=== PATIENT | female | born 1960 | race Caucasian/White ===

== ENCOUNTER 2023-05-10 08:38 | Outpatient (AMB) | payer OTHER, MEDICAID, SELFPAY ==
--- NOTE | 2023-05-10 08:39 | MHC.PC.OV ---
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 Allergies No Known Allergies Allergy (Verified 05/10/23 08:40) Medication List - Last Reconciled 05/10/23 by Roxanne Thibodeaux MD No Known Home Meds Tobacco use date assessed: 05/10/23 Dental Screening Dental Screen Date: 05/10/23 Did you have a dental visit in the last 12 months?: Yes Did you have a dental problem in the last 6 months where you did not have access to dental care?: No Was dental information given to patient?: Patient has dentist HPI 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 Do not want mammogram Do not want Pap smear No known want colonoscopy Agree to do labs Blood pressure is 152/90 I need to see her again on Monday. Last blood pressure was 118 x 62 last year We will book appointment to go over labs as well and check blood pressure. Breast exam was done benign BMI is elevated at 34.0 patient need to lose weight. [facility] Family History Other Mental health disorder Social History Housing: Apartment Patient Tobacco Use Status: Never used Tobacco e-Cigarette/Vaping Use: Never Used Current occupational status: unemployed Cognitive needs: No Hearing needs: No Vision needs: No Questionnaire PHQ-9 Over the last 2 weeks, how often have you been bothered by any of the following problems? 1. Little interest or pleasure in doing things: not at all 2. Feeling down, depressed, or hopeless: not at all 3. Trouble falling or staying asleep, or sleeping too much: nearly every day 4. Feeling tired or having little energy: not at all 5. Poor appetite or overeating: not at all 6. Feeling bad about yourself - or that you are a failure or have let yourself or your family down: not at all 7. Trouble concentrating on things, such as reading the newspaper or watching television: not at all 8. Moving or speaking so slowly that other people could have noticed. Or the opposite - being so fidgety or restless that you have been moving around a lot more than usual: not at all 9. Thoughts that you would be better off or of hurting yourself in some way: not at all Total score: 3 Depression Screening Interpretation: Negative Depression Screening Done: Yes 21561 - PHQ-9 Billing: Yes Source: Developed by Drs. Miles Izaguirre, Donna Araujo, Hayden Hernandez and colleagues, with an educational pippa from [employer]. Thrive Questionnaire Date Thrive assessed: 05/10/23 I am a: Patient What is your living situation today?: I have a steady place to live Within the past 12 months, did the food you bought not last and you didn't have the money to get more?: Never true Within the past 12 months, did you worry whether your food would run out before you got money to buy more?: Never true Do you have trouble paying for medicines?: No Do you have trouble getting transportation to medical appointments?: No Do you have trouble paying your heating and electricity bill?: No Do you have trouble taking care of your child, family member or friend?: No Do you have trouble with day-to-day activities such as bathing, preparing meals, shopping, managing finances, etc.?: No Are you currently unemployed and looking for a job?: No Are you interested in more education?: No VINCE-7 AMB Questionnaire VINCE-7 Date VINCE - 7 assessed: 05/10/23 Feeling nervous, anxious, or on edge: 0 = Not at all Not being able to stop or control worryin = Not at all Worrying too much about different things: 0 = Not at all Trouble relaxin = Not at all Being so restless that it is hard to sit still: 0 = Not at all Becoming easily annoyed or irritable: 0 = Not at all Feeling afraid as if something awful might happen: 0 = Not at all Total VINCE-7 score (0-4 normal; 5-9 mild; 10-14 moderate; 15-21 severe): 0 Source: Developed by Drs. Miles Izaguirre, Donna Araujo, Hayden Hernandez and colleagues, with an educational pippa from [employer]. VINCE-7 Assessment Billing VINCE-7 Assessment Tool: VINCE-7 Assessment 48786 Review of Systems Const Denies chills, Denies fever(s) and Denies headache(s) Eyes Denies blurry vision ENT Denies headache(s), Denies nasal discharge, Denies nasal obstruction, Denies odynophagia and Denies sinus pain Card Denies chest pain at rest and Denies chest pain with activity Resp Denies cough and Denies hemoptysis GI Denies diarrhea, Denies odynophagia, Denies vomiting and Denies hematemesis Reports as per HPI Musc Denies abnormal gait Skin/Breast Reports as per HPI Neuro Denies Neuro-related abnormal movements, Denies Abnormal speech present, Denies abnormal gait, Denies headache(s) and Denies Sensory deficit (Neuro) Psych Denies mood swings and Denies paranoia Endo Reports as per HPI Raz/Lymph Reports as per HPI Aller/Immun Reports as per HPI Physical exam (Primary Care) Vital Signs: Last Vital Signs Pulse 82 05/10/23 08:43 BP 152/90 H 05/10/23 08:43 Pulse Ox 98 05/10/23 08:43 Oxygen Delivery Method Room Air 05/10/23 08:43 BMI result Body Mass Index 34.0 Tobacco/Smoking Status: Tobacco use Status Tobacco use date assessed 05/10/23 05/10/23 08:42 Patient Tobacco Use Status Never used Tobacco 05/10/23 08:42 e-Cigarette/Vaping Use Never Used 05/10/23 08:42 PHQ-9: PHQ-9 Score PHQ-9: Total score 3 05/10/23 09:06 Depression Screening Interpretation: Negative Thrive Assessment: Date of Thrive Assessment Date Thrive assessed 05/10/23 05/10/23 09:06 Const General: cooperative, comfortable and no acute distress Orientation/consciousness: patient oriented x3 HENMT Head: Yes normocephalic and Yes atraumatic Eyes General: appearance normal, both eyes and all related structures Pupils: Equal, round and reactive pupils present EOM: EOMs intact bilaterally Neck Neck: Yes supple and No lymphadenopathy Thyroid: Thyroid normal Lymphatic: no lymphadenopathy noted Chest Breast/axilla palpation: normal palpation of the breasts Resp Effort & Inspection: normal respiratory effort and able to speak in complete sentences Auscultation: clear to auscultation bilaterally Cardio Heart sounds: S1 normal heart sound present and S2 normal heart sound present GI Palpation (GI): Soft to palpation and nontender Auscultation: normal bowel sounds General: Yes no CVA tenderness Back/Spine/Pelvis Back: no CVA tenderness Skin General skin exam: elasticity normal and turgor normal Neuro General: patient oriented x3 and gait normal Cranial nerves: Yes Equal, round and reactive pupils present Speech: No Abnormal speech present Sensory Exam: No Sensory deficit (Neuro) Coordination: tandem gait normal and Romberg test negative Extrem General: Yes normal exam except as noted and No edema Assessment and Plan Assessment & Plan (1) Encounter for general adult medical examination with abnormal findings: Code(s): Z00.01 - Encounter for general adult medical examination with abnormal findings (2) Obesity due to excess calories: Code(s): E66.09 - Other obesity due to excess calories Qualifiers: Obesity classification: adult class 1 (BMI 30 - 34.9) Serious obesity comorbidity presence: with serious comorbidity Body mass index: BMI 34.0-34.9 Qualified Code(s): E66.09 - Other obesity due to excess calories; Z68.34 - Body mass index [BMI] 34.0-34.9, adult (3) Elevated blood pressure reading: Code(s): R03.0 - Elevated blood-pressure reading, without diagnosis of hypertension Plan Patient is 63-year-old female came in today to have a form filled so she can attend [email or web address] class Last time patient was seen August of 2021, for initial physical exam Labs were ordered which were never done. Do not want mammogram Do not want Pap smear No known want colonoscopy Agree to do labs Blood pressure is 152/90 I need to see her again on Monday. Last blood pressure was 118 x 62 last year We will book appointment to go over labs as well and check blood pressure. Breast exam was done benign BMI is elevated at 34.0 patient need to lose weight. Orders: Orders Comprehensive Met. Panel Today E66.09 - Other obesity due to excess calories, R03.0 - Elevated blood-pressure reading, without diagnosis of hypertension, Z00.01 - Encounter for general adult medical examination with abnormal findings Complete Blood Count Auto Diff Today E66.09 - Other obesity due to excess calories, R03.0 - Elevated blood-pressure reading, without diagnosis of hypertension, Z00.01 - Encounter for general adult medical examination with abnormal findings LDL Cholesterol Direct Today E66.09 - Other obesity due to excess calories, R03.0 - Elevated blood-pressure reading, without diagnosis of hypertension, Z00.01 - Encounter for general adult medical examination with abnormal findings TSH reflex Free T4 Today E66.09 - Other obesity due to excess calories, R03.0 - Elevated blood-pressure reading, without diagnosis of hypertension, Z00.01 - Encounter for general adult medical examination with abnormal findings Coding Level of Care Code Est Pt Prev Care 40-64y(53589) Diagnoses Encounter for general adult medical examination with abnormal findings Z00.01 Class 1 obesity due to excess calories with serious comorbidity and body mass index (BMI) of 34.0 to 34.9 in adult E66.09; Z68.34 Obesity classification: adult class 1 (BMI 30 - 34.9) Serious obesity comorbidity presence: with serious comorbidity Body mass index: BMI 34.0-34.9 Elevated blood pressure reading R03.0 Additional Codes VINCE-7 Assessment Billing - VINCE-7 Assessment Tool: VINCE-7 Assessment 77705 ([id number])
[2023-05-10 08:43] VITALS: BP 152/90; PULSE 82; O2SAT 98; BMI 34.0
== END 2023-05-10 10:16 | disposition home or self-care (01) ==
PROVIDERS: PCP Internal Medicine; Visit Provider Internal Medicine
DX: Z00.00 Encounter for general adult medical examination without abnormal findings (principal); E66.09 Other obesity due to excess calories; Z68.34 Body mass index [BMI] 34.0-34.9, adult; R03.0 Elevated blood-pressure reading, without diagnosis of hypertension
CPT/HCPCS: 99396

== ENCOUNTER 2023-05-10 08:58 | Outpatient (REF) | payer OTHER, MEDICAID, SELFPAY ==
[2023-05-10 11:15] LABS: MANUAL DIFF FLAG NO
[2023-05-10 11:23] LABS: Basophils Percent Auto 0.3 % (0-2); Eosinophils Absolute Auto 0.1 X10*3/uL (0.0-0.4); Eosinophils Percent Auto 1.3 % (0-4); Hematocrit 47.7 % (37.0-47.0); Hemoglobin 15.5 g/dl (12.0-16.0); Imm Gran Abs Auto 0.04 X10*3/uL (0.00-0.03); Imm Gran Pct Auto 0.4 % (0.0-0.4); Lymphocytes Absolute Auto 2.3 X10*3/uL (1.2-4.9); Lymphocytes Percent Auto 24.1 % (20-40); Mean Corpuscular HGB Conc 32.5 g/dl (31.0-35.0); Mean Corpuscular Volume 101.5 fL (80.0-98.0); Mean Platelet Volume 10.8 fL (9.4-12.3); Monocytes Absolute Auto 0.9 X10*3/uL (0.1-1.2); Monocytes Percent Auto 9.2 % (2-11); Neutrophils Percent Auto 64.7 % (45-73); Platelet Count 203 X10*3/uL (160-400); Red Cell Distribution Width 13.2 % (11.0-16.0); White Blood Count 9.3 X10*3/uL (4.8-10.8)
[2023-05-10 11:35] LABS: Alanine Aminotransferase 15 U/L (0-31); Albumin Level 4.3 g/dL (3.5-5.0); Alkaline Phosphatase 118 U/L (39-117); Anion Gap 15 (12-20); Aspartate Amino Transferase 24 U/L (5-31); Bilirubin Total 0.7 mg/dL (0.0-1.0); Blood Urea Nitrogen 13 mg/dL (9-16); Calcium 10.8 mg/dL (8.4-10.2); Carbon Dioxide 27 mmol/L (22-29); Chloride 108 mmol/L (96-108); Estimated Glomerular Filt Rate > 60; Glucose Random 97 mg/dL (60-115); Sodium 146 mmol/L (135-145); Total Protein 7.3 g/dL (6.5-8.0)
[2023-05-10 11:56] LABS: TSH reflex Free T4 0.98 uIU/mL (0.32-4.0)
[2023-05-11 12:53] LABS: LDL Cholesterol Direct 118 mg/dL (<100)
== END 2023-05-10 08:59 | disposition home or self-care (01) ==
LOC: HO.HMGCLDS 08:58
PROVIDERS: PCP Internal Medicine; Visit Provider Internal Medicine
DX: Z00.01 Encounter for general adult medical examination with abnormal findings (principal); E66.09 Other obesity due to excess calories; R03.0 Elevated blood-pressure reading, without diagnosis of hypertension
CPT/HCPCS: 36415; 80053; 83721; 84443; 85025

== ENCOUNTER 2023-05-31 13:37 | Outpatient (AMB) | payer OTHER, MEDICAID, SELFPAY ==
[2023-05-31 13:44] VITALS: BP 132/86; PULSE 82; O2SAT 99; BMI 34.4
--- NOTE | 2023-05-31 13:44 | A.OFFPC_ITS ---
Vital Signs 05/31/23 13:44 Height 5 ft 6 in Weight 213 lb BMI 34.4 BP 132/86 Blood Pressure Location Rt brachial Position Sitting Pulse 82 Pulse Source Pulse Oximeter Pulse Oximetry (%) 99 Oxygen Delivery Method Room Air Intake Visit Reasons: 2 day follow up/Per Dr. Thibodeaux (rescheduled) Allergies No Known Allergies Allergy (Verified 05/31/23 13:44) Medication List - Last Reconciled 05/31/23 by Roxanne Thibodeaux MD No Known Home Meds Tobacco use date assessed: 05/31/23 Dental Screening Dental Screen Date: 05/31/23 Did you have a dental visit in the last 12 months?: Yes Did you have a dental problem in the last 6 months where you did not have access to dental care?: No Was dental information given to patient?: Patient has dentist HPI 2 day follow up/Per Dr. Thibodeaux (rescheduled) HPI Details Patient came in for blood pressure check and to go over labs Her blood pressure has improved and is down to 132/86 it was 152/90 last visit 2 weeks ago Patient is still not within normal range. She has BMI of 34.4 if she managed to lose weight it will help blood pressure as well. Meanwhile she is to continue observing no salt diet. Labs done recently showed slightly elevated sodium of 146 Calcium of 10.8 and alkaline phosphatase of 118 Patient was instructed to drink more water And repeat labs again in 2 or 3 months. Order placed [facility] Family History Other Mental health disorder Social History Housing: Apartment Patient Tobacco Use Status: Never used Tobacco e-Cigarette/Vaping Use: Never Used Current occupational status: unemployed Cognitive needs: No Hearing needs: No Vision needs: No Questionnaire Thrive Questionnaire Date Thrive assessed: 05/10/23 VINCE-7 AMB Questionnaire VINCE-7 Date VINCE - 7 assessed: 05/10/23 Source: Developed by Drs. Miles Izaguirre, Donna Araujo, Hayden Hernandez and colleagues, with an educational pippa from [employer]. Review of Systems Const Denies chills and Denies fever(s) ENT Denies epistaxis and Denies nasal discharge Card Denies chest pain Resp Denies chest congestion, Denies cough and Denies hemoptysis GI Denies diarrhea and Denies nausea Skin/Breast Denies rash Neuro Reports no additional complaints Psych Reports no additional complaints Endo Reports no additional complaints Physical exam (Primary Care) Vital Signs: Last Vital Signs Pulse 82 05/31/23 13:44 BP 132/86 05/31/23 13:44 Pulse Ox 99 05/31/23 13:44 Oxygen Delivery Method Room Air 05/31/23 13:44 BMI result Body Mass Index 34.4 Tobacco/Smoking Status: Tobacco use Status Tobacco use date assessed 05/31/23 05/31/23 13:46 Patient Tobacco Use Status Never used Tobacco 05/31/23 13:46 e-Cigarette/Vaping Use Never Used 05/31/23 13:46 Thrive Assessment: Date of Thrive Assessment Date Thrive assessed 05/10/23 05/31/23 13:46 Const General: cooperative, comfortable and no acute distress Orientation/consciousness: patient oriented x3 HENMT Head: Yes normocephalic Eyes General: appearance normal, both eyes and all related structures Neck Neck: Yes supple Resp Effort & Inspection: normal respiratory effort, no cough and no stridor Cardio Rhythm: regular rhythm Heart sounds: S1 normal heart sound present and S2 normal heart sound present Skin General skin exam: turgor normal Neuro General: patient oriented x3, tone normal and moves all extremities Extrem Right lower extremity: no edema Left lower extremity: no edema Assessment and Plan Assessment & Plan (1) Serum sodium elevated: Code(s): E87.0 - Hyperosmolality and hypernatremia (2) Serum calcium elevated: Code(s): E83.52 - Hypercalcemia (3) Alkaline phosphatase elevation: Code(s): R74.8 - Abnormal levels of other serum enzymes (4) Obesity due to excess calories: Code(s): E66.09 - Other obesity due to excess calories Qualifiers: Body mass index: BMI 34.0-34.9 Obesity classification: adult class 1 ( BMI 30 - 34.9) Serious obesity comorbidity presence: with serious comorbidity Qualified Code(s): E66.09 - Other obesity due to excess calories; Z68.34 - Body mass index [BMI] 34.0-34.9, adult (5) Pre-hypertension: Code(s): R03.0 - Elevated blood-pressure reading, without diagnosis of hypertension Plan Patient came in for blood pressure check and to go over labs Her blood pressure has improved and is down to 132/86 it was 152/90 last visit 2 weeks ago Patient is still not within normal range. She has BMI of 34.4 if she managed to lose weight it will help blood pressure as well. Meanwhile she is to continue observing no salt diet. Labs done recently showed slightly elevated sodium of 146 Calcium of 10.8 and alkaline phosphatase of 118 Patient was instructed to drink more water And repeat labs again in 2 or 3 months. Order placed She wanted a form filled for line dancing which I did Orders: Orders Comprehensive Met. Panel 2 Months E66.09 - Other obesity due to excess calories, E83.52 - Hypercalcemia, E87.0 - Hyperosmolality and hypernatremia, R74.8 - Abnormal levels of other serum enzymes Coding Level of Care Code Est Pt Level 4 (53241) Diagnoses Serum sodium elevated E87.0 Serum calcium elevated E83.52 Alkaline phosphatase elevation R74.8 Class 1 obesity due to excess calories with serious comorbidity and body mass index (BMI) of 34.0 to 34.9 in adult E66.09; Z68.34 Body mass index: BMI 34.0-34.9 Obesity classification: adult class 1 (BMI 30 - 34.9) Serious obesity comorbidity presence: with serious comorbidity Pre-hypertension R03.0
== END 2023-05-31 14:33 | disposition home or self-care (01) ==
PROVIDERS: PCP Internal Medicine; Visit Provider Internal Medicine
DX: E87.0 Hyperosmolality and hypernatremia (principal); E83.52 Hypercalcemia; R74.8 Abnormal levels of other serum enzymes; E66.09 Other obesity due to excess calories; Z68.34 Body mass index [BMI] 34.0-34.9, adult; R03.0 Elevated blood-pressure reading, without diagnosis of hypertension
CPT/HCPCS: 99214

== ENCOUNTER 2023-09-08 11:25 | Outpatient (AMB) | payer MEDICARE, SELFPAY ==
[2023-09-08 11:26] VITALS: BP 142/96; PULSE 72; O2SAT 99; BMI 34.7
--- NOTE | 2023-09-08 11:26 | MHC.PC.OV ---
Vital Signs 09/08/23 11:26 Height 5 ft 6 in Weight 215 lb 2 oz BMI 34.7 BP 142/96 H Blood Pressure Location Lt brachial Position Sitting Pulse 72 Pulse Source Pulse Oximeter Pulse Oximetry (%) 99 Oxygen Delivery Method Room Air Intake Visit Reasons: Annual PE Allergies No Known Allergies Allergy (Verified 09/08/23 11:27) Medication List - Last Reconciled 09/08/23 by Roxanne Thibodeaux MD No Known Home Meds Tobacco use date assessed: 09/08/23 Dental Screening Dental Screen Date: 09/08/23 Did you have a dental visit in the last 12 months?: Yes Did you have a dental problem in the last 6 months where you did not have access to dental care?: No Was dental information given to patient?: Patient has dentist HPI Annual PE HPI Details Physical exam, appointment patient is 63-year-old female Blood pressure is elevated today at 142/96 Last year she had labs her calcium was elevated, alkaline phosphatase was 118 and sodium was 1 point high We will be repeating labs again Patient is to return in 2 weeks for blood pressure recheck and to go over the labs Mammogram is due, order provided to patient, she says that she can only go to [facility] Colonoscopy was 2020,at [facility] patient do not remember the name of the doctor but tells me that it was normal. Pap smear due referral placed for [facility] OBGYN, breast exam through OBGYN as per patient BMI is elevated, need to lose weight PFSH Family History Other Mental health disorder Social History Housing: Apartment Patient Tobacco Use Status: Never used Tobacco e-Cigarette/Vaping Use: Never Used Current occupational status: unemployed Cognitive needs: No Hearing needs: No Vision needs: No Questionnaire Thrive Questionnaire Date Thrive assessed: 05/10/23 AUDIT C Alcohol Use Questionnaire (AUDIT-C) 1. How often do you have a drink containing alcohol?: Never 3. How often do you have six or more drinks on one occasion?: Never Total Score: 0 Score Reviewed/Action Taken: Yes VINCE-7 AMB Questionnaire VINCE-7 Date VINCE - 7 assessed: 05/10/23 Source: Developed by Drs. Miles L. ZinaDonna carnes, Hayden Hernandez and colleagues, with an educational pippa from [employer]. Review of Systems Const Denies chills, Denies fever(s) and Denies headache(s) Eyes Denies blurry vision ENT Denies headache(s), Denies nasal discharge, Denies nasal obstruction, Denies odynophagia and Denies sinus pain Card Denies chest pain at rest and Denies chest pain with activity Resp Denies cough and Denies hemoptysis GI Denies diarrhea, Denies odynophagia, Denies vomiting and Denies hematemesis Reports as per HPI Musc Denies abnormal gait Skin/Breast Reports as per HPI Neuro Denies Neuro-related abnormal movements, Denies Abnormal speech present, Denies abnormal gait, Denies headache(s) and Denies Sensory deficit (Neuro) Psych Denies mood swings and Denies paranoia Endo Reports as per HPI Raz/Lymph Reports as per HPI Aller/Immun Reports as per HPI Physical exam (Primary Care) Vital Signs: Last Vital Signs Pulse 72 09/08/23 11:26 BP 142/96 H 09/08/23 11:26 Pulse Ox 99 09/08/23 11:26 Oxygen Delivery Method Room Air 09/08/23 11:26 BMI result Body Mass Index 34.7 Tobacco/Smoking Status: Tobacco use Status Tobacco use date assessed 09/08/23 09/08/23 11:29 Patient Tobacco Use Status Never used Tobacco 09/08/23 11:29 e-Cigarette/Vaping Use Never Used 09/08/23 11:29 Thrive Assessment: Date of Thrive Assessment Date Thrive assessed 05/10/23 09/08/23 11:29 Const General: cooperative, comfortable and no acute distress Orientation/consciousness: patient oriented x3 HENMT Head: Yes normocephalic and Yes atraumatic Eyes General: appearance normal, both eyes and all related structures Pupils: Equal, round and reactive pupils present EOM: EOMs intact bilaterally Neck Neck: Yes supple and No lymphadenopathy Thyroid: Thyroid normal Lymphatic: no lymphadenopathy noted Resp Effort & Inspection: normal respiratory effort and able to speak in complete sentences Auscultation: clear to auscultation bilaterally Cardio Heart sounds: S1 normal heart sound present and S2 normal heart sound present GI Palpation (GI): Soft to palpation and nontender Auscultation: normal bowel sounds General: Yes no CVA tenderness Back/Spine/Pelvis Back: no CVA tenderness Skin General skin exam: elasticity normal and turgor normal Neuro General: patient oriented x3 and gait normal Cranial nerves: Yes Equal, round and reactive pupils present Speech: No Abnormal speech present Sensory Exam: No Sensory deficit (Neuro) Coordination: tandem gait normal and Romberg test negative Extrem General: Yes normal exam except as noted and No edema Assessment and Plan Assessment & Plan (1) Encounter for general adult medical examination with abnormal findings: Code(s): Z00.01 - Encounter for general adult medical examination with abnormal findings (2) Obesity due to excess calories: Code(s): E66.09 - Other obesity due to excess calories Qualifiers: Body mass index: BMI 34.0-34.9 Obesity classification: adult class 1 (BMI 30 - 34.9) Serious obesity comorbidity presence: with serious comorbidity Qualified Code(s): E66.09 - Other obesity due to excess calories; Z68.34 - Body mass index [BMI] 34.0-34.9, adult (3) Elevated blood pressure reading: Code(s): R03.0 - Elevated blood-pressure reading, without diagnosis of hypertension (4) Serum sodium elevated: Code(s): E87.0 - Hyperosmolality and hypernatremia (5) Serum calcium elevated: Code(s): E83.52 - Hypercalcemia (6) Alkaline phosphatase elevation: Code(s): R74.8 - Abnormal levels of other serum enzymes Plan Physical exam, appointment patient is 63-year-old female Blood pressure is elevated today at 142/96 Last year she had labs her calcium was elevated, alkaline phosphatase was 118 and sodium was 1 point high We will be repeating labs again Patient is to return in 2 weeks for blood pressure recheck and to go over the labs Mammogram is due, order provided to patient, she says that she can only go to [facility] Colonoscopy was 2020,at [facility] patient do not remember the name of the doctor but tells me that it was normal. Pap smear due referral placed for [facility] OBGYN, breast exam through OBGYN as per patient BMI is elevated, need to lose weight Orders: Orders Complete Blood Count Auto Diff Today E66.09 - Other obesity due to excess calories, E83.52 - Hypercalcemia, E87.0 - Hyperosmolality and hypernatremia, R03.0 - Elevated blood-pressure reading, without diagnosis of hypertension, R74.8 - Abnormal levels of other serum enzymes, Z00.01 - Encounter for general adult medical examination with abnormal findings LDL Cholesterol Direct Today E66.09 - Other obesity due to excess calories, E83.52 - Hypercalcemia, E87.0 - Hyperosmolality and hypernatremia, R03.0 - Elevated blood-pressure reading, without diagnosis of hypertension, R74.8 - Abnormal levels of other serum enzymes, Z00.01 - Encounter for general adult medical examination with abnormal findings MM tomosynthesis screening BI Today Z12.31 - Encounter for screening mammogram for malignant neoplasm of breast Comprehensive Met. Panel Today E66.09 - Other obesity due to excess calories, E83.52 - Hypercalcemia, E87.0 - Hyperosmolality and hypernatremia, R03.0 - Elevated blood-pressure reading, without diagnosis of hypertension, R74.8 - Abnormal levels of other serum enzymes, Z00.01 - Encounter for general adult medical examination with abnormal findings Parathyroid Hormone Related Pr Today E66.09 - Other obesity due to excess calories, E83.52 - Hypercalcemia, E87.0 - Hyperosmolality and hypernatremia, R03.0 - Elevated blood-pressure reading, without diagnosis of hypertension, R74.8 - Abnormal levels of other serum enzymes, Z00.01 - Encounter for general adult medical examination with abnormal findings TSH reflex Free T4 Today E66.09 - Other obesity due to excess calories, E83.52 - Hypercalcemia, E87.0 - Hyperosmolality and hypernatremia, R03.0 - Elevated blood-pressure reading, without diagnosis of hypertension, R74.8 - Abnormal levels of other serum enzymes, Z00.01 - Encounter for general adult medical examination with abnormal findings UA CC w/rflx Micro + Cult Today E66.09 - Other obesity due to excess calories, E83.52 - Hypercalcemia, E87.0 - Hyperosmolality and hypernatremia, R03.0 - Elevated blood-pressure reading, without diagnosis of hypertension, R74.8 - Abnormal levels of other serum enzymes, Z00.01 - Encounter for general adult medical examination with abnormal findings Referrals [employer] Referral Z01.419 - Encounter for gynecological examination (general) (routine) without abnormal findings Coding Level of Care Code Est Pt Prev Care 40-64y(39519) Diagnoses Encounter for general adult medical examination with abnormal findings Z00.01 Class 1 obesity due to excess calories with serious comorbidity and body mass index (BMI) of 34.0 to 34.9 in adult E66.09; Z68.34 Body mass index: BMI 34.0-34.9 Obesity classification: adult class 1 (BMI 30 - 34.9) Serious obesity comorbidity presence: with serious comorbidity Elevated blood pressure reading R03.0 Serum sodium elevated E87.0 Serum calcium elevated E83.52 Alkaline phosphatase elevation R74.8
== END 2023-09-08 11:55 | disposition home or self-care (01) ==
PROVIDERS: PCP Internal Medicine; Visit Provider Internal Medicine
DX: Z00.00 Encounter for general adult medical examination without abnormal findings (principal); E66.09 Other obesity due to excess calories; Z68.34 Body mass index [BMI] 34.0-34.9, adult; R03.0 Elevated blood-pressure reading, without diagnosis of hypertension; E87.0 Hyperosmolality and hypernatremia; E83.52 Hypercalcemia; R74.8 Abnormal levels of other serum enzymes
CPT/HCPCS: 99396

== ENCOUNTER 2023-09-08 11:56 | Outpatient (REF) | payer MEDICARE, SELFPAY ==
[2023-09-08 12:59] LABS: MANUAL DIFF FLAG NO
[2023-09-08 14:47] LABS: Basophils Percent Auto 0.4 % (0-2); Eosinophils Absolute Auto 0.1 X10*3/uL (0.0-0.4); Eosinophils Percent Auto 0.7 % (0-4); Hematocrit 47.4 % (37.0-47.0); Hemoglobin 15.4 g/dl (12.0-16.0); Imm Gran Abs Auto 0.02 X10*3/uL (0.00-0.03); Imm Gran Pct Auto 0.3 % (0.0-0.4); Lymphocytes Absolute Auto 2.1 X10*3/uL (1.2-4.9); Lymphocytes Percent Auto 27.9 % (20-40); Mean Corpuscular HGB Conc 32.5 g/dl (31.0-35.0); Mean Corpuscular Hemoglobin 32.6 pg (27.0-33.0); Mean Corpuscular Volume 100.2 fL (80.0-98.0); Mean Platelet Volume 10.8 fL (9.4-12.3); Monocytes Absolute Auto 0.7 X10*3/uL (0.1-1.2); Monocytes Percent Auto 9.1 % (2-11); Neutrophils Absolute Auto 4.7 x10*3/uL (2.0-8.3); Neutrophils Percent Auto 61.6 % (45-73); Platelet Count 193 X10*3/uL (160-400); Red Blood Count 4.73 X10*6/uL (4.20-5.50); Red Cell Distribution Width 12.9 % (11.0-16.0); White Blood Count 7.6 X10*3/uL (4.8-10.8)
[2023-09-08 14:54] LABS: Appearance Urine Clear; Color Urine Yellow; Glucose Urine UA Negative (Negative); Leukocyte Esterase Urine Negative (Negative); Nitrite Urine Negative (Negative); UMIC TRIGGER UACC YES; Urine Blood Small (1+) (Negative); Urine Ketones Negative (Negative); Urine Protein Trace mg/dL (Neg-Trace)
[2023-09-08 15:08] LABS: Alanine Aminotransferase 12 U/L (0-31); Albumin Level 4.5 g/dL (3.5-5.0); Alkaline Phosphatase 122 U/L (39-117); Anion Gap 15 (12-20); Aspartate Amino Transferase 17 U/L (5-31); Blood Urea Nitrogen 11 mg/dL (9-16); Calcium 10.8 mg/dL (8.4-10.2); Carbon Dioxide 28 mmol/L (22-29); Chloride 105 mmol/L (96-108); Estimated Glomerular Filt Rate > 60; Glucose Random 104 mg/dL (60-115); Potassium 3.5 mmol/L (3.3-5.1); Sodium 144 mmol/L (135-145); Total Protein 7.6 g/dL (6.5-8.0)
[2023-09-08 15:16] LABS: Bacteria Urine 2+ (None Seen); Hyaline Casts Urine 0-2 /LPF (0-2); WBC Urine 0-5 /HPF (0-5)
[2023-09-08 15:26] LABS: TSH reflex Free T4 1.14 uIU/mL (0.32-4.0)
[2023-09-09 11:09] LABS: LDL Cholesterol Direct 138 mg/dL (<100)
[2023-09-26 19:04] LABS: Parathyroid Hormone Related Pr 8 pg/mL (11-20)
== END 2023-09-08 11:57 | disposition home or self-care (01) ==
LOC: HO.LAB 11:56
PROVIDERS: PCP Internal Medicine; Visit Provider Internal Medicine
DX: Z00.01 Encounter for general adult medical examination with abnormal findings (principal); E66.09 Other obesity due to excess calories; E87.0 Hyperosmolality and hypernatremia; E83.52 Hypercalcemia; R74.8 Abnormal levels of other serum enzymes; R03.0 Elevated blood-pressure reading, without diagnosis of hypertension
CPT/HCPCS: 36415; 80053; 81001; 83519; 83721; 84443; 85025

== ENCOUNTER 2024-09-20 14:24 | Outpatient (AMB) | payer MEDICARE, SELFPAY ==
[2024-09-20 14:35] VITALS: BP 128/86; PULSE 61; O2SAT 96; BMI 32.8
--- NOTE | 2024-09-20 14:35 | MHC.PC.OV ---
Vital Signs 09/20/24 14:35 Height 5 ft 6 in Weight 203 lb 2 oz BMI 32.8 BP 128/86 Blood Pressure Location Lt brachial Position Sitting Pulse 61 Pulse Source Pulse Oximeter Pulse Oximetry (%) 96 Oxygen Delivery Method Room Air Intake Visit Reasons: Annual PE Allergies No Known Allergies Allergy (Verified 09/20/24 14:37) Medication List - Last Reconciled 09/20/24 by Roxanne Thibodeaux MD No Known Home Meds Tobacco use date assessed: 09/20/24 Dental Screening Dental Screen Date: 09/20/24 Did you have a dental visit in the last 12 months?: Yes Did you have a dental problem in the last 6 months where you did not have access to dental care?: No Was dental information given to patient?: Patient has dentist HPI Annual PE HPI Details History of Present Illness - The patient is a 64-year-old female presenting for an annual physical examination. last year's LDL of 130 - Past slightly elevated calcium and liver enzyme levels, stable, with no symptoms or treatment mentioned. - Chronic insomnia: 4-5 hours of sleep nightly with no daytime impairment, ongoing for a long time. - Completed mammogram recently and colonoscopy in 2020 with no reported abnormalities. Health Maintenance - Mammogram completed in the current year. - Colonoscopy in 2020, with no further details provided. - Discussion about repeating laboratory evaluations, including lipid profile, liver enzymes, and calcium levels. - Blood pressure monitored at 128 systolic today, indicating within acceptable range at current visit. Diagnostic results - Labs: Previous LDL level at 130 (noted elevation). - Labs: Previous elevated liver enzyme and calcium levels (stable). - Tests and diagnostics: Recent mammogram and colonoscopy in 2020. Patient Instructions - Return the following morning for fasting laboratory tests between 6:30 a.m. and 3:00 p.m. - Maintain observance of current health status, particularly regarding sleep patterns and general well-being. Review of Systems - General: No fever no chills - Neurological: No headaches no dizziness - Ear nose throat: No sore throat no hearing difficulty no ear pain - Cardiovascular: No syncope, no chest pain, no palpitations - Gastrointestinal: No nausea vomiting or diarrhea - Endocrine: No polyuria polydipsia no heat intolerance - Genitourinary: No dysuria - Skin: No new complaints Physical Exam General: Cooperative, healthy appearing, comfortable, no acute distress Orientation: Patient oriented x3 Limitations: None Head: Normal to inspection Ears: Within normal limit visually Nose: Normal external nose present Face and sinus: Normal facial exam Eyes: Appearance normal, extraocular movement intact pupils reactive Neck: Normal visual inspection and supple Respiratory: Normal respiratory effort and able to speak in complete sentences. Clear to auscultation, no stridor Cardiovascular: S1 and S2 Breast exam through OBGYN GI: Normal to inspection. Soft to palpation and nontender Skin: Turgor normal, no acute findings Neuro: Patient oriented x3, motor sensory intact, balance intact, tandem pass Extremities: Normal to inspection, no swelling PFSH Family History Other Mental health disorder Social History Housing: Apartment Patient Tobacco Use Status: Never used Tobacco e-Cigarette/Vaping Use: Never Used Current occupational status: unemployed Cognitive needs: No Hearing needs: No Vision needs: No Questionnaire PHQ-9 Over the last 2 weeks, how often have you been bothered by any of the following problems? 1. Little interest or pleasure in doing things: not at all 2. Feeling down, depressed, or hopeless: not at all 3. Trouble falling or staying asleep, or sleeping too much: nearly every day 4. Feeling tired or having little energy: not at all 5. Poor appetite or overeating: several days 6. Feeling bad about yourself - or that you are a failure or have let yourself or your family down: not at all 7. Trouble concentrating on things, such as reading the newspaper or watching television: not at all 8. Moving or speaking so slowly that other people could have noticed. Or the opposite - being so fidgety or restless that you have been moving around a lot more than usual: not at all 9. Thoughts that you would be better off or of hurting yourself in some way: not at all Total score: 4 Depression Screening Interpretation: Negative Depression Screening Done: Yes [id number] - PHQ-9 Billing: Yes Source: Developed by Drs. Miles Izaguirre, Donna Araujo, Hayden Hernandez and colleagues, with an educational pippa from [employer]. Thrive Questionnaire Date Thrive assessed: 09/20/24 I am a: Patient What is your living situation today?: I have a steady place to live Within the past 12 months, did the food you bought not last and you didn't have the money to get more?: Never true Within the past 12 months, did you worry whether your food would run out before you got money to buy more?: Never true Do you have trouble paying for medicines?: No Do you have trouble getting transportation to medical appointments?: Yes Do you have trouble paying your heating and electricity bill?: No Do you have trouble taking care of your child, family member or friend?: No Do you have trouble with day-to-day activities such as bathing, preparing meals, shopping, managing finances, etc.?: No Are you currently unemployed and looking for a job?: No Are you interested in more education?: No Please select the resources that you would like help with: Transportation Currently or been in a relationship where the following occur: No concerns reported THRIVE Score: 1 AUDIT C Alcohol Use Questionnaire (AUDIT-C) 1. How often do you have a drink containing alcohol?: Never 3. How often do you have six or more drinks on one occasion?: Never Total Score: 0 Score Reviewed/Action Taken: Yes VINCE-7 AMB Questionnaire VINCE-7 Date VINCE - 7 assessed: 09/20/24 Feeling nervous, anxious, or on edge: 0 = Not at all Not being able to stop or control worryin = Not at all Worrying too much about different things: 0 = Not at all Trouble relaxin = Not at all Being so restless that it is hard to sit still: 0 = Not at all Becoming easily annoyed or irritable: 0 = Not at all Feeling afraid as if something awful might happen: 0 = Not at all Total VINCE-7 score (0-4 normal; 5-9 mild; 10-14 moderate; 15-21 severe): 0 Source: Developed by Drs. Miles Izaguirre, Donna Araujo, Hayden Hernandez and colleagues, with an educational pippa from [employer]. VINCE-7 Assessment Billing VINCE-7 Assessment Tool: VINCE-7 Assessment [id number] Physical exam (Primary Care) Vital Signs: Last Vital Signs Pulse 61 09/20/24 14:35 BP 128/86 09/20/24 14:35 Pulse Ox 96 09/20/24 14:35 Oxygen Delivery Method Room Air 09/20/24 14:35 BMI result Body Mass Index 32.8 Tobacco/Smoking Status: Tobacco use Status Tobacco use date assessed 09/20/24 09/20/24 14:37 Patient Tobacco Use Status Never used Tobacco 09/20/24 14:35 e-Cigarette/Vaping Use Never Used 09/20/24 14:35 PHQ-9: PHQ-9 Score PHQ-9: Total score 4 09/20/24 15:41 Depression Screening Interpretation: Negative Thrive Assessment: Date of Thrive Assessment Date Thrive assessed 09/20/24 09/20/24 14:37 Currently or been in a relationship where the following occur: No concerns reported Coding Level of Care Code Est Pt Level 3 (30851) Est Pt Prev Care 40-64y(03096) Diagnoses Encounter for general adult medical examination with abnormal findings Z00.01 Alkaline phosphatase elevation R74.8 Serum calcium elevated E83.52 Additional Codes VINCE-7 Assessment Billing - VINCE-7 Assessment Tool: VINCE-7 Assessment 97850 ([id number]) PHQ-9 - 27418 - PHQ-9 Billing: Yes ([id number]) Assessment & Plan Assessment & Plan (1) Encounter for general adult medical examination with abnormal findings: Code(s): Z00.01 - Encounter for general adult medical examination with abnormal findings Category: Medical (2) Alkaline phosphatase elevation: Code(s): R74.8 - Abnormal levels of other serum enzymes Category: Medical (3) Serum calcium elevated: Code(s): E83.52 - Hypercalcemia Category: Medical Plan History of Present Illness - The patient is a 64-year-old female presenting for an annual physical examination. last year's LDL of 130 - Past slightly elevated calcium and liver enzyme levels, stable, with no symptoms or treatment mentioned. - Chronic insomnia: 4-5 hours of sleep nightly with no daytime impairment, ongoing for a long time. - Completed mammogram recently and colonoscopy in 2020 with no reported abnormalities. Health Maintenance - Mammogram completed in the current year. - Colonoscopy in 2020, with no further details provided. - Discussion about repeating laboratory evaluations, including lipid profile, liver enzymes, and calcium levels. - Blood pressure monitored at 128 systolic today, indicating within acceptable range at current visit. Diagnostic results - Labs: Previous LDL level at 130 (noted elevation). - Labs: Previous elevated liver enzyme and calcium levels (stable). - Tests and diagnostics: Recent mammogram and colonoscopy in 2020. Patient Instructions - Return the following morning for fasting laboratory tests between 6:30 a.m. and 3:00 p.m. - Maintain observance of current health status, particularly regarding sleep patterns and general well-being. Orders: Orders Lipid Panel Today E83.52 - Hypercalcemia, R74.8 - Abnormal levels of other serum enzymes, Z00.01 - Encounter for general adult medical examination with abnormal findings Complete Blood Count Auto Diff Today E83.52 - Hypercalcemia, R74.8 - Abnormal levels of other serum enzymes, Z00.01 - Encounter for general adult medical examination with abnormal findings Comprehensive [place]. Panel Fast Today E83.52 - Hypercalcemia, R74.8 - Abnormal levels of other serum enzymes, Z00.01 - Encounter for general adult medical examination with abnormal findings
--- OUTSIDE RECORDS SUMMARY | 2024-09-20 16:33 | XMS_ITS | Clinical Summary ---
Author Organization [facility] ity Address [address] [place] [address] Care Team Providers Care After School Teacher Name Role Phone Katie Xavier MD Primary Care Provide r Social History Tobacco Use Types Packs/Day Years Used Date Smoking Tobacco: Never Assessed Comments Unknown Sex and Gender Information Value Date Recorded Sex Assigned at Not on file Legal Sex Female 5:51 AM EST Gender Identity Not on file Sexual Orientation Not on file Plan of Treatment Health Maintenance Due Date Last Done Comments DTaP,Tdap,and Td Vaccines (1 - Tdap) 01/12/1980 Cervical Cancer Screening: P ap Smear 1982 Pneumococcal Vaccine: 50+ Ye ars (1 of 1 - PCV) 2011 Zoster Vaccines (1 of 2) 2011 Colorectal Cancer Screening: Colonoscopy 02/20/2024 Depression Screening 02/20/2024 HIV Screening 02/20/2024 Hepatitis C Screening 02/20/2024 Social Influencers of Health Screening 02/20/2024 COVID-19 Vaccine ( - 2023-2 5 season) 2024 Influenza Vaccine (#1) 2024 Breast Cancer Screening 10/04/2025 10/05/2023 RSV Immunization Patients 60 + Years Old (1 - 1-dose 75+ series) 01/12/2036 HIB Vaccines Aged Out No longer eligi ble based on patient's age to complete this topic HPV Vaccines Aged Out No longer eligi ble based on patient's age to complete this topic Hepatitis A Vaccines Aged Out No long er eligible based on patient's age to complete this topic Hepatitis B Vaccines Aged Out No long er eligible based on patient's age to complete this topic IPV Vaccines Aged Out No longer eligi ble based on patient's age to complete this topic MMR Vaccines Aged Out No longer eligi ble based on patient's age to complete this topic Meningococcal ACWY Vaccine Aged Out N o longer eligible based on patient's age to complete this topic Meningococcal B Vacine Aged Out No lo nger eligible based on patient's age to complete this topic Pneumococcal Vaccine: Pediat rics (0 to 5 Years) and At-Risk Patients (6 to 64 Years) Aged Out No longer eligi ble based on patient's age to complete this topic RSV Immunization Patients Un josi 20 months Aged Out No longer eligible b ased on patient's age to complete this topic Varicella Vaccines Aged Out No longer eligible based on patient's age to complete this topic Procedures Procedure Name Priority Date/Time Associated Diagnosis Comments [facility] [place] [place] Routine 10/05/2023 3:59 PM EDT Encounter for screening mammogram for malignant neoplasm of breast from Last 3 Months or Most Recently Relevant to Health Maintenance Results * [facility] [place] [place] (10/05/2023 3:59 PM EDT) Anatomical Region Laterality Modality Mammography 10/05/2023 1:25 PM EDT Narrative 10/05/2023 3:59 PM EDT [facility] Diagnostic Imaging Department [address] [place] [address] Patient: ??CATERINA BURCH ?/Age/Sex: 1960 - 63 - F Unit#: ??[id number] ? Location/Status: ??SPDIMAM/REG CLI ? Mnemonic/Ordering Site: ??DIGSC/SPMAM Ordering Physician: ??ROXANNE VILLA MD [facility] Screening Digital - 10/05/23 - [id number] Report Status:Signed EXAM: [facility] Screening Digital EXAM DATE AND TIME: 10/05/2023 1:39 PM HISTORY: ??Screening. COMPARISON: ??08/13/14, 11/07/12 TECHNIQUE: Bilateral digital breast tomosynthesis was performed in the CC and MLO projections. Computer aided detection with Skipo 3D 3.1 was employed. TISSUE DENSITY: b. There are scattered areas of fibroglandular density. FINDINGS: No suspicious masses, grouped microcalcifications, or areas of architectural distortion are seen. The skin and vascularity are unremarkable. IMPRESSION: Stable mammographic appearance of the breasts. ??No evidence of malignancy is seen. A negative mammogram in the presence of a clinically suspicious palpable abnormality does not preclude the possibility of malignancy or alter the indications for biopsy. BI-RADS: ??Category 1: Negative RECOMMENDATION(S): 1: Routine screening mammogram BILATERAL in 1 year. Dictating Physician: ??GRETCHEN BUNCH MD Electronically Signed by: ??GRETCHEN BUNCH MD Dic Date/Time: ??10/05/23 1558 Sign date/Time: ??10/05/23 1559 Procedure Note Gretchen Bunch MD - 03/11/2024 [facility] Diagnostic Imaging Department [address] [place] [address] Patient: ALYSONCATERINA D.O.B./Age/Sex: 1960 - 63 - F Unit#: [id number] Location/Status: SPDIMAM/REG CLI Mnemonic/Ordering Site: [facility] Ordering Physician: ROXANNE VILLA MD [facility] Screening Digital - 10/05/23 - [id number] Report Status:Signed EXAM: [facility] Screening Digital EXAM DATE AND TIME: 10/05/2023 1:39 PM HISTORY: Screening. COMPARISON: 08/13/14, 11/07/12 TECHNIQUE: Bilateral digital breast tomosynthesis was performed in the CCand MLO projections. Computer aided detection with Skipo 3D 3.1was employed. TISSUE DENSITY: b. There are scattered areas of fibroglandular density. FINDINGS: No suspicious masses, grouped microcalcifications, or areas ofarchitectural distortion are seen. The skin and vascularity are unremarkable. IMPRESSION: Stable mammographic appearance of the breasts. No evidence of malignancyis seen. A negative mammogram in the presence of a clinically suspicious palpable abnormality does not preclude the possibility of malignancy or alter the indications for biopsy. BI-RADS: Category 1: Negative RECOMMENDATION(S): 1: Routine screening mammogram BILATERAL in 1 year. Dictating Physician: GRETCHEN BUNCH MD Electronically Signed by: GRETCHEN BUNCH MD Dic Date/Time: 10/05/23 1558 Sign date/Time: 10/05/231558 us Roxanne Villa MD IMG BI PROCEDURES Final Result from Last 3 Months or Most Recently Relevant to Health Maintenance Care Teams After School Teacher Relationship Specialty Start Date End Date Katie Xavier MD PCP - General Internal Medicine 01/09/19
== END 2024-09-20 15:10 | disposition home or self-care (01) ==
PROVIDERS: PCP Internal Medicine; Visit Provider Internal Medicine
DX: Z00.00 Encounter for general adult medical examination without abnormal findings (principal); R74.8 Abnormal levels of other serum enzymes; E83.52 Hypercalcemia

== ENCOUNTER → 2024-09-20 14:24 | Outpatient (BNVA) | payer MEDICARE, SELFPAY | PROVIDERS: PCP Internal Medicine; Visit Provider Internal Medicine | DX: Z00.01 Encounter for general adult medical examination with abnormal findings (principal); R74.8 Abnormal levels of other serum enzymes; E83.52 Hypercalcemia | CPT/HCPCS: 96127; 99396 ==

== ENCOUNTER 2024-09-23 08:38 | Outpatient (REF) | payer MEDICARE, SELFPAY ==
--- OUTSIDE RECORDS SUMMARY | 2024-09-23 09:10 | XMS_ITS | Clinical Summary ---
Author Organization [facility] ity Address [address] [place] [address] Care Team Providers Care Altitude Chamber Technician Name Role Phone Katie Xavier MD Primary [...] Procedure Name Priority Date/Time Associated Diagnosis Comments [facility] SCREENING DIGITAL Routine 10/05/2023 3:59 PM EDT Encounter for screening mammogram for malignant neoplasm of breast from Last 3 Months or Most Recently Relevant to Health Maintenance Results * [facility] SCREENING DIGITAL (10/05/2023 3:59 PM EDT) Anatomical Region Laterality Modality Mammography 10/05/2023 1:25 PM EDT Narrative 10/05/2023 3:59 PM EDT [facility] Diagnostic Imaging Department [address] [place] [address] Patient: ??CATERINA BURCH ?/Age/Sex: 1960 - 63 - F Unit#: ??[id number] ? Location/Status: ??SPDIMAM/REG CLI ? Mnemonic/Ordering Site: ??DIGSC/SPMAM Ordering Physician: ??ROXANNE VILLA MD [facility] Screening Digital - 10/05/23 - [id number] Report Status:Signed EXAM: [facility] Screening Digital EXAM DATE AND TIME: 10/05/2023 1:39 PM HISTORY: ??Screening. COMPARISON: ??08/13/14, 11/07/12 TECHNIQUE: Bilateral digital breast tomosynthesis was performed in the CC and MLO projections. Computer aided detection with IgnitionOne 3D 3.1 was employed. TISSUE DENSITY: b. [...] Procedure Note Gretchen Bunch MD - 03/11/2024 [facility] Diagnostic Imaging Department [address] [place] [address] Patient: ALYSONCATERINA D.O.B./Age/Sex: 1960 - 63 - F Unit#: [id number] Location/Status: SPDIMAM/REG CLI Mnemonic/Ordering Site: [facility] Ordering Physician: ROXANNE VILLA MD [facility] Screening Digital - 10/05/23 - [id number] Report Status:Signed EXAM: [facility] Screening Digital EXAM DATE AND TIME: 10/05/2023 1:39 PM HISTORY: Screening. COMPARISON: 08/13/14, 11/07/12 TECHNIQUE: Bilateral digital breast tomosynthesis was performed in the CCand MLO projections. Computer aided detection with IgnitionOne 3D 3.1was employed. TISSUE DENSITY: b. There [...] Recently Relevant to Health Maintenance Care Teams Altitude Chamber Technician Relationship Specialty Start Date End Date Katie Xavier MD PCP - General Internal Medicine 01/09/19
[2024-09-23 10:20] LABS: MANUAL DIFF FLAG NO
[2024-09-23 10:31] LABS: Basophils Percent Auto 0.4 % (0-2); Eosinophils Absolute Auto 0.1 X10*3/uL (0.0-0.4); Eosinophils Percent Auto 1.5 % (0-4); Hematocrit 39.7 % (37.0-47.0); Hemoglobin 12.7 g/dl (12.0-16.0); Imm Gran Abs Auto 0.01 X10*3/uL (0.00-0.03); Imm Gran Pct Auto 0.2 % (0.0-0.4); Lymphocytes Absolute Auto 2.1 X10*3/uL (1.2-4.9); Mean Corpuscular Hemoglobin 31.6 pg (27.0-33.0); Mean Corpuscular Volume 98.8 fL (80.0-98.0); Mean Platelet Volume 11.1 fL (9.4-12.3); Monocytes Absolute Auto 0.5 X10*3/uL (0.1-1.2); Monocytes Percent Auto 10.2 % (2-11); Neutrophils Absolute Auto 2.6 x10*3/uL (2.0-8.3); Neutrophils Percent Auto 48.7 % (45-73); Platelet Count 153 X10*3/uL (160-400); Red Blood Count 4.02 X10*6/uL (4.20-5.50); Red Cell Distribution Width 12.5 % (11.0-16.0); White Blood Count 5.3 X10*3/uL (4.8-10.8)
[2024-09-23 11:16] LABS: Alanine Aminotransferase 10 U/L (0-31); Albumin Level 3.7 g/dL (3.5-5.0); Alkaline Phosphatase 129 U/L (39-117); Anion Gap 11 (12-20); Aspartate Amino Transferase 20 U/L (5-31); Bilirubin Total 0.6 mg/dL (0.0-1.0); Blood Urea Nitrogen 18 mg/dL (9-16); Calcium 9.7 mg/dL (8.4-10.2); Carbon Dioxide 25 mmol/L (22-29); Chloride 112 mmol/L (96-108); Cholesterol 222 mg/dL (<200); Estimated Glomerular Filt Rate > 60; Glucose Fasting 99 mg/dL (60-99); HDL Cholesterol 48 mg/dL (>40); LDL Cholesterol Calculated 160 mg/dL (<100); Potassium 4.1 mmol/L (3.3-5.1); Sodium 144 mmol/L (135-145); Total Protein 6.6 g/dL (6.5-8.0); Triglycerides 73 mg/dL (<150)
== END 2024-09-23 08:39 | disposition home or self-care (01) ==
LOC: HO.HMGCLDS 08:38
PROVIDERS: Internal Medicine; PCP Internal Medicine; Visit Provider Internal Medicine
DX: Z00.01 Encounter for general adult medical examination with abnormal findings (principal); E83.52 Hypercalcemia; R74.8 Abnormal levels of other serum enzymes
CPT/HCPCS: 36415; 80053; 80061; 85025

== ENCOUNTER 2024-09-26 08:32 | Outpatient (AMB) | payer MEDICARE, SELFPAY ==
--- NOTE | 2024-09-26 08:40 | A.OFFPC_ITS ---
Intake Visit Reasons: Discuss Labs Allergies No Known Allergies Allergy (Verified 09/26/24 08:41) Medication List - Last Reconciled 09/26/24 by Roxanne Thibodeaux MD No Known Home Meds Tobacco use date assessed: 09/26/24 Dental Screening Dental Screen Date: 09/26/24 Did you have a dental visit in the last 12 months?: Yes Did you have a dental problem in the last 6 months where you did not have access to dental care?: No Was dental information given to patient?: Patient has dentist HPI Discuss Labs HPI Details History - The patient is a 64-year-old female pr esenting with hyperlipidemia. - The patient's LDL cholesterol levels h ave been trending upward for several years, currently recorded at 160 mg/dL. - History of elevated liver enzymes, whi ch remain stable. - Hemoglobin has decreased but remains w ithin normal limits, with the recent measurement at 12.7 g/dL. Problem List - Hyperlipidemia - Elevated Liver Enzymes - Decreased Hemoglobin Patient Instructions - Be mindful of dietary intake, specific ally reducing fat consumption. - Continue consuming healthy fats, such as those from nuts and avocados. - Consider taking a vitamin with iron to support hemoglobin levels. - Return for lab follow-up next year to monitor cholesterol and hemoglobin levels. Review of Systems. - General: No fever no chills - Neurological: No headaches no dizziness - Ear nose throat: No sore throat no hearing difficulty no ear pain - Cardiovascular: No syncope, no chest pain, no palpitations - Gastrointestinal: No nausea vomiting or diarrhea - Endocrine: No polyuria polydipsia no heat intolerance - Genitourinary: No dysuria , no blood in urine PFSH Family History Other Mental health disorder Social History Housing: Apartment Patient Tobacco Use Status: Never used Tobacco e-Cigarette/Vaping Use: Never Used Current occupational status: unemployed Cognitive needs: No Hearing needs: No Vision needs: No Questionnaire Thrive Questionnaire Date Thrive assessed: 09/20/24 AUDIT C Alcohol Use Questionnaire (AUDIT-C) 1. How often do you have a drink containing alcohol?: Never 3. How often do you have six or more drinks on one occasion?: Never Total Score: 0 Score Reviewed/Action Taken: Yes VINCE-7 AMB Questionnaire VINCE-7 Date VINCE - 7 assessed: 09/20/24 Source: Developed by Drs. Miles Izaguirre, Donna Araujo, Hayden Hernandez and colleagues, with an educational pippa from [employer]. Physical exam (Primary Care) Tobacco/Smoking Status: Tobacco use Status Tobacco use date assessed 09/26/24 09/26/24 08:41 Patient Tobacco Use Status Never used Tobacco 09/26/24 08:41 e-Cigarette/Vaping Use Never Used 09/26/24 08:41 Thrive Assessment: Date of Thrive Assessment Date Thrive assessed 09/20/24 09/26/24 08:41 Telehealth Telehealth Telehealth Platform: [email or web address] Location of provider rendering services: practice address Location of patient: address on file Patient Identification confirmed using: Name, : Yes Telehealth method: voice only Patient verbally consented to treatment: Yes Patient verbally consented to billing insurance company: Yes Patient informed of any privacy concerns related to visit: Yes Minutes spent on Phone/Video with Pt.: 12 Coding Level of Care Code Tele Est Pt Level 3 (60923) Diagnoses Alkaline phosphatase elevation R74.8 Elevated LDL cholesterol level E78.00 Assessment & Plan Assessment & Plan (1) Alkaline phosphatase elevation: Code(s): R74.8 - Abnormal levels of other serum enzymes Category: Medical (2) Elevated LDL cholesterol level: Code(s): E78.00 - Pure hypercholesterolemia, unspecified Category: Medical Plan History - The patient is a 64-year-old female presenting with hyperlipidemia. - The patient's LDL cholesterol levels have been trending upward for several years, currently recorded at 160 mg/dL. - History of elevated liver enzymes, which remain stable. - Hemoglobin has decreased but remains within normal limits, with the recent measurement at 12.7 g/dL. Problem List - Hyperlipidemia - Elevated Liver Enzymes - Decreased Hemoglobin Patient Instructions - Be mindful of dietary intake, specifically reducing fat consumption. - Continue consuming healthy fats, such as those from nuts and avocados. - Consider taking a vitamin with iron to support hemoglobin levels. - Return for lab follow-up next year to monitor cholesterol and hemoglobin levels.
--- OUTSIDE RECORDS SUMMARY | 2024-09-26 08:57 | XMS_ITS | Clinical Summary ---
Author Organization [facility] ity Address [address] [place] [address] Care Team Providers Care Change Management Manager Name Role Phone Katie Xavier MD Primary [...] Procedure Name Priority Date/Time Associated Diagnosis Comments [facility] SCREENING DIGITAL Routine 10/05/2023 3:59 PM EDT Encounter for screening mammogram for malignant neoplasm of breast from Last 3 Months or Most Recently Relevant to Health Maintenance Results * [facility] SCREENING DIGITAL (10/05/2023 3:59 PM EDT) Anatomical Region Laterality Modality Mammography 10/05/2023 1:25 PM EDT Narrative 10/05/2023 3:59 PM EDT [facility] Diagnostic Imaging Department [address] [place] [address] Patient: ??CATERINA BURCH ?/Age/Sex: 1960 - 63 - F Unit#: ??[id number] ? Location/Status: ??SPDIMAM/REG CLI ? Mnemonic/Ordering Site: ??DIGSC/SPMAM Ordering Physician: ??ROXANNE VILLA MD [facility] Screening Digital - 10/05/23 - [id number] Report Status:Signed EXAM: [facility] Screening Digital EXAM DATE AND TIME: 10/05/2023 1:39 PM HISTORY: ??Screening. COMPARISON: ??08/13/14, 11/07/12 TECHNIQUE: Bilateral digital breast tomosynthesis was performed in the CC and MLO projections. Computer aided detection with [employer]ocket 3D 3.1 was employed. TISSUE DENSITY: b. [...] Procedure Note Gretchen Bunch MD - 03/11/2024 [facility] Diagnostic Imaging Department [address] [place] [address] Patient: ALYSONCATERINA D.O.B./Age/Sex: 1960 - 63 - F Unit#: [id number] Location/Status: SPDIMAM/REG CLI Mnemonic/Ordering Site: [facility] Ordering Physician: ROXANNE VILLA MD [facility] Screening Digital - 10/05/23 - 1338 Report Status:Signed EXAM: [facility] Screening Digital EXAM DATE AND TIME: 10/05/2023 1:39 PM HISTORY: Screening. COMPARISON: 08/13/14, 11/07/12 TECHNIQUE: Bilateral digital breast tomosynthesis was performed in the CCand MLO projections. Computer aided detection with Netsocket 3D 3.1was employed. TISSUE DENSITY: b. There [...] Recently Relevant to Health Maintenance Care Teams Change Management Manager Relationship Specialty Start Date End Date Katie Xavier MD PCP - General Internal Medicine 01/09/19
== END 2024-09-26 09:53 | disposition home or self-care (01) ==
LOC: HO.HMCC 08:32
PROVIDERS: PCP Internal Medicine; Visit Provider Internal Medicine
DX: R74.8 Abnormal levels of other serum enzymes (principal); E78.00 Pure hypercholesterolemia, unspecified